=== PATIENT | female | born 2005 | race Two or more races ===

== ENCOUNTER → 2025-06-03 | Outpatient (CLI) | payer OTHER ==
[~2025-06-03] MED LIST: NIFE10CA61 PO; PRENTAB9 PO
[2025-06-03 17:50] LABS: ALT/SGPT 13 U/L (7.0-40); AST/SGOT 18 U/L (<34); CALCIUM LEVEL 9.2 MG/DL (8.5-10.1); CARBON DIOXIDE LEVEL 22 MMOL/L (20-31); CHLORIDE LEVEL 107 MMOL/L (98-107); CREATININE FOR GFR 0.56 MG/DL (0.55-1.30); GLOMERULAR FILTRATION RATE > 90.0 (>60); POTASSIUM SERUM 4.2 MMOL/L (3.5-5.1); SODIUM LEVEL 140 MMOL/L (136-145)
== END ==
LOC: M PLALAB 15:58
PROVIDERS: ATTEND Nurse Practitioner Family
DX: L29.9 Pruritus, unspecified (principal)

== ENCOUNTER 2025-06-11 19:32 | Outpatient (CLI) | payer OTHER ==
[~2025-06-11] VITALS: Ht 170.2 cm; Wt 93.6 kg
[2025-06-11 19:43] VITALS: BP 131/81
[2025-06-11] MEDS ORDERED: HOME MED LIST COMPLETE! XX SCH (19:50)
[2025-06-11] MEDS: CALCIUM CARBONATE 500 MG CHEW U/D PO ONE (20:53)
== END 2025-06-11 23:35 | disposition home or self-care (01) ==
LOC: M LDO 19:32
PROVIDERS: ATTEND Obstetrics & Gynecology
DX: O36.8130 Decreased fetal movements, third trimester, not applicable or unspecified (principal); Z3A.35 35 weeks gestation of pregnancy
CPT/HCPCS: 59025; 76819; 76820; G0463

== ENCOUNTER 2025-07-25 01:18 | Emergency (ER) | payer OTHER ==
[~2025-07-25] VITALS: Ht 170.2 cm; Wt 93.0 kg
[~2025-07-25 01:18] MED LIST changes: +GNP250TA9 PO; +OMEP-173 PO; +PNV,1TAB3 PO; +PREN1TAB11 PO
[2025-07-25 02:10] LABS: BASO # 0.0 10^3/uL (0.0-0.2); BASO % 0.3 % (0.0-1.0); EOS # 0.2 10^3/uL (0.0-0.5); EOS % 1.6 % (0.0-3.0); LYMPH # 3.5 10^3/uL (1.5-5.0); LYMPH % 29.7 % (24.0-44.0); MONO # 0.8 10^3/uL (0.0-0.8); MONO % 6.8 % (2.0-8.0); NEUTROPHILS # 7.1 10^3/uL (1.5-8.5); NEUTROPHILS % 60.3 % (36.0-66.0); PLATELET COUNT, AUTOMATED 190 10^3/uL (150-450)
[2025-07-25 02:36] LABS: CALCIUM LEVEL 8.4 MG/DL (8.5-10.1); CARBON DIOXIDE LEVEL 22 MMOL/L (20-31); CHLORIDE LEVEL 107 MMOL/L (98-107); CK-MB VALUE MASS 3.3 NG/ML (<3.6); CPK CREATINE PHOSPHOKINASE 148 U/L (34-145); CREATININE FOR GFR 0.65 MG/DL (0.55-1.30); GLOMERULAR FILTRATION RATE > 90.0 (>60); MB/CK RELATIVE INDEX 2.22 (< OR =4); POTASSIUM SERUM 3.7 MMOL/L (3.5-5.1); SODIUM LEVEL 141 MMOL/L (136-145)
[2025-07-25] MEDS ORDERED: ISOVUE-370 76% 100 ML VIAL As Ordered ONE (03:29)
[2025-07-25 03:39] LABS: CK-MB VALUE MASS 2.9 NG/ML (<3.6)
[2025-07-25 03:46] LABS: CPK CREATINE PHOSPHOKINASE 135 U/L (34-145); MB/CK RELATIVE INDEX 2.14 (< OR =4)
[2025-07-25 06:52] VITALS: BP 132/85; TEMP 97.6; O2SAT 99
== END 2025-07-25 06:58 | disposition home or self-care (01) ==
LOC: M ED 01:18 → MERGE 01:18 → M ED 06:58
DX: R07.9 Chest pain, unspecified (principal); J45.909 Unspecified asthma, uncomplicated
CPT/HCPCS: 36415; 71045; 71275; 80048; 82550; 82553; 84484; 85025; 85730; 93005; 93041; 94760; 99285; Q9967